=== PATIENT | male | born 2005 | race Caucasian/White ===

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

== ENCOUNTER → 2025-05-24 | Day surgery (SDC) | payer OTHER ==
[~2025-05-24] VITALS: Ht 185.4 cm; Wt 94.4 kg
[~2025-05-24] MED LIST changes: +ACETAMINOPHEN 1000MG/100ML IV BAG As Ordered ONE; +HYDROMORPHONE HCL 0.5 MG/0.5 ML SYRINGE IV PRN; +KETOROLAC 30 MG/ML 1 ML VIAL As Ordered ONE; +LIDOCAINE 1% SDV 5 ML VIAL SC PRN; +LIDOCAINE 2% 100 MG/5 ML SDV (FOR ANES.) As Ordered ONE; +LR 1,000 ML IV SCH; +MIDAZOLAM INJ 2 MG/2 ML VIAL As Ordered ONE; +ONDANSETRON 4MG 2ML VIAL As Ordered ONE; +ONDANSETRON 4MG 2ML VIAL IV PRN; +dexAMETHasone 4 MG/ML 1 ML VIAL As Ordered ONE
[2025-05-24] MEDS: MIDAZOLAM INJ 2 MG/2 ML VIAL IV PRN (13:20)
[2025-05-24] MEDS: LIDOCAINE 1% SDV 5 ML VIAL PN ONE (13:28)
[2025-05-24] MEDS: ROPIvacaine 0.5% 30ML VIAL PN ONE (13:29)
[2025-05-24] MEDS: dexAMETHasone 10 MG/1 ML VIAL PRES.FREE PN ONE (13:29)
[2025-05-24] MEDS: EPINEPHrine INJ 1 MG/ML 1ML AMP PN ONE (13:29)
[2025-05-24 16:50] VITALS: TEMP 97.5
[2025-05-24 17:10] VITALS: BP 127/68; O2SAT 97
== END | disposition home or self-care (01) ==
LOC: M SDC 11:10
PROVIDERS: ATTEND Orthopaedic Surgery Hand Surgery
DX: S52.351A Displaced comminuted fracture of shaft of radius, right arm, initial encounter for closed fracture (principal); V29.99XA Rider (driver) (passenger) of other motorcycle injured in unspecified traffic accident, initial encounter; Y93.9 Activity, unspecified; Y92.9 Unspecified place or not applicable
CPT/HCPCS: 25515; 76000; C1713; J0131; J0166; J0690; J1100; J1885; J2250; J2405; J2795; J3010

== ENCOUNTER → 2025-06-02 | Outpatient (CLI) | payer OTHER ==
[~2025-06-02] MED LIST changes: -ACETAMINOPHEN 1000MG/100ML IV BAG As Ordered ONE; -HYDROMORPHONE HCL 0.5 MG/0.5 ML SYRINGE IV PRN; -IBUP-1022 PO; +IBUP600T42 PO; -KETOROLAC 30 MG/ML 1 ML VIAL As Ordered ONE; -LIDOCAINE 1% SDV 5 ML VIAL SC PRN; -LIDOCAINE 2% 100 MG/5 ML SDV (FOR ANES.) As Ordered ONE; -LR 1,000 ML IV SCH; -MIDAZOLAM INJ 2 MG/2 ML VIAL As Ordered ONE; -ONDANSETRON 4MG 2ML VIAL As Ordered ONE; -ONDANSETRON 4MG 2ML VIAL IV PRN; -dexAMETHasone 4 MG/ML 1 ML VIAL As Ordered ONE
== END ==
LOC: M SOG 07:36
PROVIDERS: ATTEND Physician Assistant
DX: S52.301A Unspecified fracture of shaft of right radius, initial encounter for closed fracture (principal); Z53.9 Procedure and treatment not carried out, unspecified reason

== ENCOUNTER → 2025-06-13 | Outpatient (CLI) | payer OTHER | LOC: M SOG 06:52 | PROVIDERS: ATTEND Physician Assistant | DX: S52.301A Unspecified fracture of shaft of right radius, initial encounter for closed fracture (principal); Z53.9 Procedure and treatment not carried out, unspecified reason ==

== ENCOUNTER → 2025-06-14 | Outpatient (CLI) | payer OTHER | LOC: M SOG 06:59 | PROVIDERS: ATTEND Physician Assistant | DX: S52.301D Unspecified fracture of shaft of right radius, subsequent encounter for closed fracture with routine healing (principal) ==

== ENCOUNTER → 2025-07-11 | Outpatient (CLI) | payer OTHER | LOC: M SOG 07:21 | PROVIDERS: ATTEND Physician Assistant | DX: S52.301A Unspecified fracture of shaft of right radius, initial encounter for closed fracture (principal) ==

== ENCOUNTER → 2025-08-24 | Outpatient (CLI) | payer OTHER | LOC: M SOG 07:44 | PROVIDERS: ATTEND Physician Assistant | DX: S52.301D Unspecified fracture of shaft of right radius, subsequent encounter for closed fracture with routine healing (principal); X58.XXXD Exposure to other specified factors, subsequent encounter; Y92.9 Unspecified place or not applicable; Y93.9 Activity, unspecified; Y99.9 Unspecified external cause status ==